=== PATIENT | male | born 1965 | race Two or more races ===

== ENCOUNTER 2018-08-30 01:16 | Inpatient (IN) | payer OTHER | END 2018-08-31 14:45 | LOC: ER 01:16 → OVERFLOW 04:48 → TELE-E-ADS 08:36 | DX: G92 Toxic encephalopathy (principal); M62.82 Rhabdomyolysis; F15.129 Other stimulant abuse with intoxication, unspecified; K75.9 Inflammatory liver disease, unspecified; I10 Essential (primary) hypertension ==